=== PATIENT | male | born 1985 | race African-American/Black ===

== ENCOUNTER → 2023-05-11 | Outpatient (CLI) | payer OTHER | LOC: MHCPAIN 15:09 | DX: M47.897 Other spondylosis, lumbosacral region (principal); M54.16 Radiculopathy, lumbar region | CPT/HCPCS: G0463 ==

== ENCOUNTER → 2023-06-09 | Outpatient (CLI) | payer OTHER | LOC: MHCPAIN 07:46 | DX: M48.061 Spinal stenosis, lumbar region without neurogenic claudication (principal); M54.16 Radiculopathy, lumbar region | CPT/HCPCS: J1100; Q9967 ==

== ENCOUNTER → 2023-09-13 | Outpatient (CLI) | payer OTHER | LOC: MHCPAIN 09:30 | DX: M47.896 Other spondylosis, lumbar region (principal); R07.89 Other chest pain | CPT/HCPCS: G0463 ==